=== PATIENT | female | born 1955 | race Caucasian/White ===

== ENCOUNTER 2019-02-12 18:42 | Inpatient (IN) ==
[2019-02-12] MEDS ORDERED: SODIUM CHLORIDE 0.9% 1,000 ML IV STA (19:49)
[2019-02-12] MEDS ORDERED: MORPHINE 4 MG/1 ML VIAL IV STA (19:49)
[2019-02-12] MEDS ORDERED: ONDANSETRON 4 MG/2 ML VIAL IV STA (19:49)
[2019-02-12 20:10] LABS: Basophils # 0.1 10*3/uL (0.0-0.2); Basophils % 0.4 % (0.0-0.8); Eosinophils % 0.1 % (0.00-10.9); Hematocrit 31.3 VOL% (35.7-47.0); Hemoglobin 10.2 GM/DL (12.0-16.0); Immature Granulocytes % 0.7 %; Immature Granulocytes Absolute 0.08 #; Lymphocytes # 2.3 10*3/uL (1.4-4.0); Mean Corpuscular HGB Conc 32.6 GM/DL (32-36); Mean Corpuscular Volume 93.4 FL (87-102); Mean Platelet Volume 10.1 FL (9.6-12.0); Monocytes % 7.2 % (1.7-12.7); Neutrophils % 71.6 % (38.7-73.9); Platelet Count 372 T/CUMM (130-400); Red Blood Count 3.35 MC/CUMM (3.8-5.5); Red Cell Distribution Width 13.2 % (9.3-17.3); White Blood Count 11.5 T/CUMM (4-12)
[2019-02-12 20:17] LABS: INR 0.9; PT Patient Result 9.6 SECS (9.6-12.2)
[2019-02-12 20:20] LABS: Alanine Aminotransferase 30 U/L (13-56); Albumin 2.8 G/DL (3.4-5.0); Alkaline Phosphatase 167 U/L (45-117); Aspartate Amino Transferase 29 U/L (0-37); Bilirubin,Total < 0.39 MG/DL (0.2-1.0); Blood Urea Nitrogen 10 MG/DL (7-18); Estimated Glom Filtration Rate 89 ML/MIN; Glucose 353 MG/DL (74-106); Osmolality,Calculated 272.8 MOS/KG (273-304); Total Protein 7.2 G/DL (6.4-8.3)
[2019-02-12] MEDS ORDERED: ONDANSETRON 4 MG/2 ML VIAL IV PRN (21:08)
[2019-02-12] MEDS ORDERED: DEXTROSE 50% 25 GM/50 ML VIAL IV PRN ×2 (21:13→23:06)
[2019-02-12] MEDS ORDERED: GLUCAGON 1 MG VIAL IM PRN (21:13)
[2019-02-12 21:17] LABS: Apearance,Urine CLEAR (Clear); Bilirubin,Urine Negative (Negative); Blood, Urine Negative (Negative); Glucose,Urine (UA) >=500 mg/dL (Negative); Ketones,Urine Negative (Negative); Mucus,Urine Occasional /LPF (Occasional); Nitrite,Urine Negative (Negative); Protein,Urine Negative; RBC,Urine 1 /HPF (0-4); Urine Color Straw (Yellow); Urine Specific Gravity 1.051 (1.001-1.035); Urine Urobilinogen < 2.0 EU/DL (0.2-1.0); WBC,Urine 1 /HPF (0-6)
[2019-02-12] MEDS ORDERED: LEVOFLOXACIN INJ 750 MG in PREMIX 1 EACH IV STA (21:18)
[2019-02-12] MEDS ORDERED: LEVOFLOXACIN INJ 750 MG in PREMIX 1 EACH IV SCH (21:30)
[2019-02-12] MEDS: INSULIN REGULAR 100 UNIT/ML SUBCUT SCH (21:57)
[2019-02-12] MEDS: metroNIDAZOLE INJ 500 MG in PREMIX 1 EACH IV SCH (23:44)
[2019-02-13] MEDS: ACETAMINOPHEN 325 MG TABLET PO PRN (04:51)
[2019-02-13] MEDS: metroNIDAZOLE INJ 500 MG in PREMIX 1 EACH IV SCH (05:45)
[2019-02-13 07:17] LABS: Basophils # 0.1 10*3/uL (0.0-0.2); Basophils % 0.6 % (0.0-0.8); Eosinophils % 0.1 % (0.00-10.9); Hematocrit 28.1 VOL% (35.7-47.0); Hemoglobin 8.9 GM/DL (12.0-16.0); Immature Granulocytes % 0.7 %; Immature Granulocytes Absolute 0.06 #; Lymphocytes # 1.9 10*3/uL (1.4-4.0); Lymphocytes % 22.2 % (21.3-54.2); Mean Corpuscular HGB Conc 31.7 GM/DL (32-36); Mean Corpuscular Volume 95.6 FL (87-102); Mean Platelet Volume 9.9 FL (9.6-12.0); Monocytes % 7.5 % (1.7-12.7); Neutrophils % 68.9 % (38.7-73.9); Platelet Count 304 T/CUMM (130-400); Red Blood Count 2.94 MC/CUMM (3.8-5.5); Red Cell Distribution Width 13.3 % (9.3-17.3); White Blood Count 8.6 T/CUMM (4-12)
[2019-02-13 07:43] LABS: Albumin 2.2 G/DL (3.4-5.0); Bilirubin,Total 0.4 MG/DL (0.2-1.0); Calcium 8.3 MG/DL (8.5-10.1); Osmolality,Calculated 272.4 MOS/KG (273-304); Total Protein 6.6 G/DL (6.4-8.3)
[2019-02-13] MEDS: INSULIN REGULAR 100 UNIT/ML SUBCUT SCH ×4 (08:14→20:59)
[2019-02-13] MEDS ORDERED: MELOXICAM 7.5 MG TABLET PO SCH (09:00)
[2019-02-13] MEDS: CLINDAMYCIN INJ 900 MG in PREMIX 1 EACH IV SCH ×2 (11:42→18:13)
[2019-02-13] MEDS: amLODIPine 5 MG TABLET PO SCH (14:03)
[2019-02-13] MEDS: ASPIRIN EC 81 MG TABLET PO SCH (14:03)
[2019-02-13] MEDS: PANTOPRAZOLE 40 MG TABLET PO SCH (14:03)
[2019-02-13] MEDS: ATORVASTATIN 20 MG TABLET PO SCH (14:03)
[2019-02-13] MEDS: PARoxetine 20 MG TABLET PO SCH (14:03)
[2019-02-13] MEDS: MORPHINE 4 MG/1 ML VIAL IV PRN (17:06)
[2019-02-13 18:13] LABS: Total Protein,Pleural Fluid 5.2 G/DL
[2019-02-13 20:33] LABS: Lymphocytes,Pleural Fluid 5 %; Neutrophils,Pleural Fluid 95 %
[2019-02-13 20:34] LABS: RBC,Pleural Fluid 9938 T/CUMM
[2019-02-13] MEDS: INSULIN GLARGINE 100 UNIT/ML SUBCUT SCH (21:00)
[2019-02-13] MEDS: LEVOFLOXACIN INJ 750 MG in PREMIX 1 EACH IV SCH (21:00)
[2019-02-14] MEDS: CLINDAMYCIN INJ 900 MG in PREMIX 1 EACH IV SCH ×4 (03:16→18:09)
[2019-02-14 05:59] LABS: Basophils # 0.1 10*3/uL (0.0-0.2); Basophils % 0.6 % (0.0-0.8); Eosinophils % 0.1 % (0.00-10.9); Hematocrit 27.8 VOL% (35.7-47.0); Hemoglobin 8.8 GM/DL (12.0-16.0); Immature Granulocytes % 0.6 %; Immature Granulocytes Absolute 0.05 #; Mean Corpuscular HGB Conc 31.7 GM/DL (32-36); Mean Corpuscular Volume 94.2 FL (87-102); Mean Platelet Volume 10.1 FL (9.6-12.0); Monocytes % 10.2 % (1.7-12.7); Neutrophils % 63.5 % (38.7-73.9); Platelet Count 321 T/CUMM (130-400); Red Blood Count 2.95 MC/CUMM (3.8-5.5); Red Cell Distribution Width 13.4 % (9.3-17.3); White Blood Count 7.9 T/CUMM (4-12)
[2019-02-14 06:40] LABS: Calcium 8.6 MG/DL (8.5-10.1); Osmolality,Calculated 272.8 MOS/KG (273-304); Risk Ratio 2.02; Thyroid Stimulating Hormone 3.46 uIU/ml (0.358-3.74)
[2019-02-14] MEDS: ASPIRIN EC 81 MG TABLET PO SCH (08:22)
[2019-02-14] MEDS: ATORVASTATIN 20 MG TABLET PO SCH (08:22)
[2019-02-14] MEDS: PARoxetine 20 MG TABLET PO SCH (08:23)
[2019-02-14] MEDS: PANTOPRAZOLE 40 MG TABLET PO SCH (08:23)
[2019-02-14] MEDS: amLODIPine 5 MG TABLET PO SCH (08:23)
[2019-02-14] MEDS: MORPHINE 4 MG/1 ML VIAL IV PRN (08:24)
[2019-02-14] MEDS ORDERED: POTASSIUM CHLORIDE 20 MEQ TABLET PO PRN (08:35)
[2019-02-14] MEDS: INSULIN REGULAR 100 UNIT/ML SUBCUT SCH ×4 (09:06→21:35)
[2019-02-14] MEDS: INSULIN GLARGINE 100 UNIT/ML SUBCUT SCH ×2 (09:07→21:35)
[2019-02-14] MEDS ORDERED: MAGNESIUM SULF RIDER 4 GM in PREMIX 1 EACH IV PRN (11:56)
[2019-02-14] MEDS ORDERED: DORNASE ALFA INTRAPLEUR ONE (12:00)
[2019-02-14] MEDS ORDERED: ALTEPLASE INTRAPLEUR ONE (12:00)
[2019-02-14] MEDS: POTASSIUM CHLORIDE 20 MEQ TABLET PO PRN ×2 (12:16→14:52)
[2019-02-14] MEDS: MAGNESIUM SULF RIDER 2 GM in PREMIX 1 EACH IV PRN (12:56)
[2019-02-14] MEDS ORDERED: traZODone 50 MG TABLET PO PRN (13:59)
[2019-02-14] MEDS: LEVOFLOXACIN INJ 750 MG in PREMIX 1 EACH IV SCH (21:36)
[2019-02-15] MEDS: CLINDAMYCIN INJ 900 MG in PREMIX 1 EACH IV SCH ×2 (02:04→11:53)
[2019-02-15 05:37] LABS: Basophils % 0.5 % (0.0-0.8); Eosinophils % 0.3 % (0.00-10.9); Hemoglobin 9.5 GM/DL (12.0-16.0); Immature Granulocytes % 1.2 %; Immature Granulocytes Absolute 0.09 #; Lymphocytes # 1.6 10*3/uL (1.4-4.0); Lymphocytes % 20.9 % (21.3-54.2); Mean Corpuscular HGB Conc 31.7 GM/DL (32-36); Mean Corpuscular Volume 95.5 FL (87-102); Mean Platelet Volume 9.5 FL (9.6-12.0); Neutrophils % 68.1 % (38.7-73.9); Platelet Count 313 T/CUMM (130-400); Red Blood Count 3.14 MC/CUMM (3.8-5.5); Red Cell Distribution Width 13.3 % (9.3-17.3); White Blood Count 7.7 T/CUMM (4-12)
[2019-02-15 05:54] LABS: Calcium 8.6 MG/DL (8.5-10.1); Osmolality,Calculated 260.7 MOS/KG (273-304)
[2019-02-15] MEDS: MAGNESIUM SULF RIDER 2 GM in PREMIX 1 EACH IV PRN (06:06)
[2019-02-15] MEDS: INSULIN REGULAR 100 UNIT/ML SUBCUT SCH ×4 (08:15→21:15)
[2019-02-15] MEDS: amLODIPine 5 MG TABLET PO SCH (08:27)
[2019-02-15] MEDS: PANTOPRAZOLE 40 MG TABLET PO SCH (08:28)
[2019-02-15] MEDS: ATORVASTATIN 20 MG TABLET PO SCH (08:28)
[2019-02-15] MEDS: PARoxetine 20 MG TABLET PO SCH (08:28)
[2019-02-15] MEDS: ASPIRIN EC 81 MG TABLET PO SCH (08:28)
[2019-02-15] MEDS: INSULIN GLARGINE 100 UNIT/ML SUBCUT SCH ×2 (08:37→21:15)
[2019-02-15] MEDS ORDERED: DORNASE ALFA INTRAPLEUR ONE (16:30)
[2019-02-15] MEDS ORDERED: ALTEPLASE INTRAPLEUR ONE (16:30)
[2019-02-15] MEDS: LEVOFLOXACIN 750 MG TABLET PO SCH (21:13)
[2019-02-16 05:29] LABS: Basophils # 0.1 10*3/uL (0.0-0.2); Basophils % 0.8 % (0.0-0.8); Eosinophils % 0.6 % (0.00-10.9); Hematocrit 28.8 VOL% (35.7-47.0); Hemoglobin 8.8 GM/DL (12.0-16.0); Immature Granulocytes % 1.3 %; Immature Granulocytes Absolute 0.08 #; Lymphocytes % 32.1 % (21.3-54.2); Mean Corpuscular HGB Conc 30.6 GM/DL (32-36); Mean Corpuscular Volume 97.6 FL (87-102); Mean Platelet Volume 10.1 FL (9.6-12.0); Monocytes % 8.8 % (1.7-12.7); Neutrophils % 56.4 % (38.7-73.9); Platelet Count 330 T/CUMM (130-400); Red Blood Count 2.95 MC/CUMM (3.8-5.5); Red Cell Distribution Width 13.5 % (9.3-17.3); White Blood Count 6.4 T/CUMM (4-12)
[2019-02-16 06:01] LABS: Calcium 8.8 MG/DL (8.5-10.1); Osmolality,Calculated 267.1 MOS/KG (273-304)
[2019-02-16] MEDS: amLODIPine 5 MG TABLET PO SCH (08:28)
[2019-02-16] MEDS: PARoxetine 20 MG TABLET PO SCH (08:28)
[2019-02-16] MEDS: ATORVASTATIN 20 MG TABLET PO SCH (08:28)
[2019-02-16] MEDS: PANTOPRAZOLE 40 MG TABLET PO SCH (08:28)
[2019-02-16] MEDS: ASPIRIN EC 81 MG TABLET PO SCH (08:28)
[2019-02-16] MEDS: INSULIN REGULAR 100 UNIT/ML SUBCUT SCH ×4 (08:31→22:24)
[2019-02-16] MEDS: INSULIN GLARGINE 100 UNIT/ML SUBCUT SCH ×2 (08:31→22:24)
[2019-02-16] MEDS: POLYETHYLENE GLYCOL POWDER 17 GM PACK PO SCH (14:37)
[2019-02-16] MEDS: LEVOFLOXACIN 750 MG TABLET PO SCH (22:23)
[2019-02-16] MEDS: traZODone 50 MG TABLET PO PRN (22:23)
[2019-02-17 06:00] LABS: Basophils # 0.1 10*3/uL (0.0-0.2); Eosinophils # 0.1 10*3/uL (0.0-0.87); Eosinophils % 1.7 % (0.00-10.9); Hematocrit 29.7 VOL% (35.7-47.0); Hemoglobin 9.1 GM/DL (12.0-16.0); Immature Granulocytes % 1.2 %; Immature Granulocytes Absolute 0.06 #; Lymphocytes # 1.9 10*3/uL (1.4-4.0); Lymphocytes % 37.3 % (21.3-54.2); Mean Corpuscular HGB Conc 30.6 GM/DL (32-36); Mean Corpuscular Volume 97.4 FL (87-102); Mean Platelet Volume 9.6 FL (9.6-12.0); Monocytes % 11.1 % (1.7-12.7); Neutrophils % 47.7 % (38.7-73.9); Platelet Count 310 T/CUMM (130-400); Red Blood Count 3.05 MC/CUMM (3.8-5.5); Red Cell Distribution Width 13.3 % (9.3-17.3); White Blood Count 5.2 T/CUMM (4-12)
[2019-02-17 06:32] LABS: Calcium 8.9 MG/DL (8.5-10.1); Osmolality,Calculated 269.8 MOS/KG (273-304)
[2019-02-17] MEDS: INSULIN REGULAR 100 UNIT/ML SUBCUT SCH ×4 (08:01→21:02)
[2019-02-17] MEDS: INSULIN GLARGINE 100 UNIT/ML SUBCUT SCH ×2 (09:11→21:02)
[2019-02-17] MEDS: POLYETHYLENE GLYCOL POWDER 17 GM PACK PO SCH (09:12)
[2019-02-17] MEDS: ASPIRIN EC 81 MG TABLET PO SCH (09:13)
[2019-02-17] MEDS: PANTOPRAZOLE 40 MG TABLET PO SCH (09:13)
[2019-02-17] MEDS: PARoxetine 20 MG TABLET PO SCH (09:13)
[2019-02-17] MEDS: amLODIPine 5 MG TABLET PO SCH (09:33)
[2019-02-17] MEDS: ATORVASTATIN 20 MG TABLET PO SCH (09:38)
[2019-02-17] MEDS: ALBUTEROL/IPRATROPIUM 3 ML NEB RESP TX SCH (18:44)
[2019-02-17] MEDS: LEVOFLOXACIN 750 MG TABLET PO SCH (21:02)
[2019-02-17] MEDS: traZODone 50 MG TABLET PO PRN (22:31)
[2019-02-18] MEDS: ALBUTEROL/IPRATROPIUM 3 ML NEB RESP TX SCH ×4 (00:33→20:45)
[2019-02-18 05:14] LABS: Basophils % 0.5 % (0.0-0.8); Eosinophils # 0.1 10*3/uL (0.0-0.87); Eosinophils % 1.1 % (0.00-10.9); Hematocrit 29.2 VOL% (35.7-47.0); Hemoglobin 9.1 GM/DL (12.0-16.0); Immature Granulocytes % 1.3 %; Immature Granulocytes Absolute 0.07 #; Lymphocytes # 2.3 10*3/uL (1.4-4.0); Lymphocytes % 41.5 % (21.3-54.2); Mean Corpuscular HGB Conc 31.2 GM/DL (32-36); Mean Corpuscular Volume 95.7 FL (87-102); Mean Platelet Volume 9.9 FL (9.6-12.0); Monocytes % 8.6 % (1.7-12.7); Platelet Count 330 T/CUMM (130-400); Red Blood Count 3.05 MC/CUMM (3.8-5.5); Red Cell Distribution Width 13.3 % (9.3-17.3); White Blood Count 5.5 T/CUMM (4-12)
[2019-02-18 05:41] LABS: Calcium 8.9 MG/DL (8.5-10.1); Osmolality,Calculated 275.7 MOS/KG (273-304)
[2019-02-18] MEDS: INSULIN REGULAR 100 UNIT/ML SUBCUT SCH ×4 (07:46→20:59)
[2019-02-18] MEDS: PANTOPRAZOLE 40 MG TABLET PO SCH (08:27)
[2019-02-18] MEDS: INSULIN GLARGINE 100 UNIT/ML SUBCUT SCH ×2 (08:28→21:00)
[2019-02-18] MEDS: amLODIPine 5 MG TABLET PO SCH (08:28)
[2019-02-18] MEDS: ASPIRIN EC 81 MG TABLET PO SCH (08:28)
[2019-02-18] MEDS: PARoxetine 20 MG TABLET PO SCH (08:28)
[2019-02-18] MEDS: POLYETHYLENE GLYCOL POWDER 17 GM PACK PO SCH (08:28)
[2019-02-18] MEDS: ATORVASTATIN 20 MG TABLET PO SCH (08:28)
[2019-02-18] MEDS ORDERED: ALTEPLASE 5 MG in SYRINGE 1 EACH INTRAPLEUR ONE (08:30)
[2019-02-18] MEDS: MAGNESIUM HYDROXIDE SUSP 30 ML UDCUP PO PRN ×2 (08:32→20:58)
[2019-02-18] MEDS: ENOXAPARIN 40 MG/0.4 ML SYRINGE SUBCUT SCH (14:12)
[2019-02-18] MEDS: LEVOFLOXACIN 750 MG TABLET PO SCH (21:01)
[2019-02-18] MEDS: traZODone 50 MG TABLET PO PRN (22:40)
[2019-02-19] MEDS: ALBUTEROL/IPRATROPIUM 3 ML NEB RESP TX SCH ×4 (00:48→20:37)
[2019-02-19 04:52] LABS: Basophils # 0.1 10*3/uL (0.0-0.2); Basophils % 0.9 % (0.0-0.8); Eosinophils # 0.1 10*3/uL (0.0-0.87); Eosinophils % 1.9 % (0.00-10.9); Hematocrit 29.6 VOL% (35.7-47.0); Hemoglobin 9.3 GM/DL (12.0-16.0); Immature Granulocytes Absolute 0.06 #; Lymphocytes # 2.4 10*3/uL (1.4-4.0); Lymphocytes % 41.6 % (21.3-54.2); Mean Corpuscular HGB Conc 31.4 GM/DL (32-36); Mean Corpuscular Volume 95.5 FL (87-102); Mean Platelet Volume 9.6 FL (9.6-12.0); Monocytes % 9.6 % (1.7-12.7); Platelet Count 340 T/CUMM (130-400); Red Cell Distribution Width 13.6 % (9.3-17.3); White Blood Count 5.7 T/CUMM (4-12)
[2019-02-19 05:19] LABS: Calcium 8.9 MG/DL (8.5-10.1); Osmolality,Calculated 273.7 MOS/KG (273-304)
[2019-02-19] MEDS: INSULIN REGULAR 100 UNIT/ML SUBCUT SCH ×4 (07:59→21:55)
[2019-02-19] MEDS: ACETAMINOPHEN 325 MG TABLET PO PRN (08:09)
[2019-02-19] MEDS: MAGNESIUM HYDROXIDE SUSP 30 ML UDCUP PO PRN ×3 (08:10→21:25)
[2019-02-19] MEDS ORDERED: POLYVINYL ALCOHOL 1.4% OPH SOLN 15 ML BOTTLE BOTH EYES PRN (08:12)
[2019-02-19] MEDS: POLYETHYLENE GLYCOL POWDER 17 GM PACK PO SCH (09:12)
[2019-02-19] MEDS: INSULIN GLARGINE 100 UNIT/ML SUBCUT SCH ×2 (09:13→21:55)
[2019-02-19] MEDS: PARoxetine 20 MG TABLET PO SCH (09:14)
[2019-02-19] MEDS: ASPIRIN EC 81 MG TABLET PO SCH (09:14)
[2019-02-19] MEDS: PANTOPRAZOLE 40 MG TABLET PO SCH (09:14)
[2019-02-19] MEDS: amLODIPine 5 MG TABLET PO SCH (09:14)
[2019-02-19] MEDS: ATORVASTATIN 20 MG TABLET PO SCH (09:14)
[2019-02-19] MEDS: ENOXAPARIN 40 MG/0.4 ML SYRINGE SUBCUT SCH (14:20)
[2019-02-19] MEDS: LEVOFLOXACIN 750 MG TABLET PO SCH (21:24)
[2019-02-19] MEDS: traZODone 50 MG TABLET PO PRN (21:55)
[2019-02-20] MEDS: ALBUTEROL/IPRATROPIUM 3 ML NEB RESP TX SCH ×2 (00:31→07:57)
[2019-02-20 07:37] VITALS: BP 133/77
[2019-02-20] MEDS: ACETAMINOPHEN 325 MG TABLET PO PRN (08:04)
[2019-02-20] MEDS: ATORVASTATIN 20 MG TABLET PO SCH (09:17)
[2019-02-20] MEDS: amLODIPine 5 MG TABLET PO SCH (09:18)
[2019-02-20] MEDS: POLYETHYLENE GLYCOL POWDER 17 GM PACK PO SCH (09:18)
[2019-02-20] MEDS: PARoxetine 20 MG TABLET PO SCH (09:18)
[2019-02-20] MEDS: PANTOPRAZOLE 40 MG TABLET PO SCH (09:18)
[2019-02-20] MEDS: INSULIN GLARGINE 100 UNIT/ML SUBCUT SCH (09:24)
[2019-02-20] MEDS: INSULIN REGULAR 100 UNIT/ML SUBCUT SCH (09:24)
[2019-02-20] MEDS: ASPIRIN EC 81 MG TABLET PO SCH (09:25)
== END 2019-02-20 13:00 | disposition home or self-care (01) | DRG 137 ==
LOC: N.ED 18:42 → N.EDINP 21:08 → SUATTDRO 21:08 → N.5E 21:50
PROVIDERS: ADMIT Internal Medicine; ATTEND Internal Medicine Cardiovascular Disease

== ENCOUNTER 2019-11-23 06:26 | Inpatient (IN) ==
[2019-11-18 15:06] LABS: Basophils # 0.1 10*3/uL (0.0-0.2); Basophils % 0.8 % (0.0-0.8); Eosinophils # 0.1 10*3/uL (0.0-0.87); Eosinophils % 0.8 % (0.00-10.9); Hematocrit 41.6 VOL% (35.7-47.0); Hemoglobin 13.8 GM/DL (12.0-16.0); Immature Granulocytes % 0.3 %; Immature Granulocytes Absolute 0.02 #; Lymphocytes # 2.9 10*3/uL (1.4-4.0); Lymphocytes % 40.5 % (21.3-54.2); Mean Corpuscular HGB Conc 33.2 GM/DL (32-36); Mean Corpuscular Volume 93.9 FL (87-102); Mean Platelet Volume 10.2 FL (9.6-12.0); Monocytes % 6.1 % (1.7-12.7); Neutrophils % 51.5 % (38.7-73.9); Platelet Count 190 T/CUMM (130-400); Red Blood Count 4.43 MC/CUMM (3.8-5.5); Red Cell Distribution Width 12.4 % (9.3-17.3); White Blood Count 7.1 T/CUMM (4-12)
[2019-11-18 15:16] LABS: PT Patient Result 10.3 SECS (9.8-11.9)
[2019-11-18 15:33] LABS: Albumin 4.1 G/DL (3.4-5.0); Bilirubin,Total 1.2 MG/DL (0.2-1.0); Osmolality,Calculated 281.3 MOS/KG (273-304); Total Protein 7.5 G/DL (6.4-8.3)
[~2019-11-23 06:26] MED LIST: DEXMEDETOMIDINE 200 MCG/2 ML VIAL ONE; HEPARIN/NACL 0.9% 2 UNITS/ML 500 ML IV ONE; MORPHINE 10 MG/10 ML VIAL ONE; NITROGLYCERIN DRIP 50 MG/250 ML BOTTLE IV ONE; PHENYLEPHRINE DRIP 20 MG/250 ML PREMIX IV ONE
[2019-11-23] MEDS ORDERED: VANCOMYCIN INJ 1,000 MG in SODIUM CHLORIDE 0.9% 250 ML IV ONE (06:30)
[2019-11-23] MEDS ORDERED: SODIUM CHLORIDE 0.9% 250 ML IV ONE (06:32)
[2019-11-23] MEDS ORDERED: HEPARIN 5,000 UNIT/1 ML VIAL ONE ×2 (06:32→06:44)
[2019-11-23] MEDS ORDERED: LIDOCAINE 1% 20 ML VIAL ONE (06:45)
[2019-11-23] MEDS ORDERED: VANCOMYCIN 1,000 MG VIAL ONE (06:58)
[2019-11-23] MEDS ORDERED: LACTATED RINGERS 1,000 ML IV SCH (07:00)
[2019-11-23] MEDS ORDERED: DEXMEDETOMIDINE 200 MCG in SODIUM CHLORIDE 0.9% 48 ML IV PRN (10:52)
[2019-11-23] MEDS ORDERED: tiZANidine 4 MG TABLET PO PRN (11:13)
[2019-11-23] MEDS ORDERED: ALBUMIN 5% 12.5 GM/250 ML VIAL IV ONE ×2 (11:23→15:37)
[2019-11-23] MEDS ORDERED: LIDOCAINE 2% 5 ML VIAL ONE (12:04)
[2019-11-23] MEDS ORDERED: fentaNYL 100 MCG/2 ML VIAL ONE (12:05)
[2019-11-23] MEDS ORDERED: ROCURONIUM 100 MG/10 ML VIAL IV ONE (12:05)
[2019-11-23] MEDS ORDERED: MIDAZOLAM 2 MG/2 ML VIAL ONE (12:05)
[2019-11-23] MEDS ORDERED: DESFLURANE 1 UNIT/15 MINUTE INH ONE (12:05)
[2019-11-23] MEDS ORDERED: HEPARIN 10,000 UNIT/10 ML VIAL ONE (12:05)
[2019-11-23] MEDS ORDERED: SODIUM CHLORIDE 0.9% 1,000 ML IV ONE ×2 (12:05→16:00)
[2019-11-23] MEDS ORDERED: LACTATED RINGERS 2,000 ML IV ONE (12:05)
[2019-11-23] MEDS ORDERED: ETOMIDATE 40 MG/20 ML VIAL IV ONE (12:05)
[2019-11-23] MEDS ORDERED: ePHEDrine 50 MG/ML VIAL ONE (12:05)
[2019-11-23] MEDS ORDERED: PROTAMINE SULFATE 50 MG/5 ML VIAL IV ONE (12:06)
[2019-11-23 12:11] LABS: Basophils # 0.1 10*3/uL (0.0-0.2); Basophils % 0.7 % (0.0-0.8); Eosinophils # 0.1 10*3/uL (0.0-0.87); Eosinophils % 0.5 % (0.00-10.9); Hematocrit 32.3 VOL% (35.7-47.0); Immature Granulocytes % 0.5 %; Immature Granulocytes Absolute 0.05 #; Lymphocytes # 2.9 10*3/uL (1.4-4.0); Mean Corpuscular Volume 99.7 FL (87-102); Mean Platelet Volume 9.8 FL (9.6-12.0); Monocytes % 5.3 % (1.7-12.7); Platelet Count 122 T/CUMM (130-400); Red Blood Count 3.24 MC/CUMM (3.8-5.5); Red Cell Distribution Width 12.5 % (9.3-17.3); White Blood Count 10.7 T/CUMM (4-12)
[2019-11-23] MEDS ORDERED: PHENYLEPHRINE DRIP 40 MG/250 ML PREMIX IV ONE (12:15)
[2019-11-23] MEDS: ROPIVACAINE 0.2% 100 ML EPIDURAL SCH (12:15)
[2019-11-23] MEDS: PHENYLEPHRINE DRIP 40 MG/250 ML PREMIX IV PRN ×2 (12:20→19:38)
[2019-11-23 12:32] LABS: Calcium 7.5 MG/DL (8.5-10.1); Osmolality,Calculated 294.6 MOS/KG (273-304)
[2019-11-23 12:47] LABS: Platelet Estimate Adequate
[2019-11-23] MEDS: LACTATED RINGERS 1,000 ML IV SCH ×2 (13:00→22:11)
[2019-11-23] MEDS ORDERED: GLUCAGON 1 MG VIAL IM PRN (13:25)
[2019-11-23] MEDS ORDERED: DEXTROSE 50% 25 GM/50 ML VIAL IV PRN (13:25)
[2019-11-23] MEDS: POTASSIUM CHLORIDE RIDER 10 MEQ in PREMIX 1 EACH IV SCH ×2 (14:30→15:35)
[2019-11-23] MEDS ORDERED: POTASSIUM CHLORIDE RIDER 200 ML IV ONE (14:31)
[2019-11-23 14:33] LABS: ABG HCO3 17.9 MMOL/L (20-26); ABG Oxygen Saturation 96.4 % (95-100); ABG PCO2 52.3 MM HG (35-48); ABG TCO2 18.9 MMOL/L (23-27)
[2019-11-23] MEDS ORDERED: MAGNESIUM SULF RIDER 4 GM in PREMIX 1 EACH IV ONE (16:00)
[2019-11-23] MEDS ORDERED: ALBUMIN 5% 25 GM in PREMIX 1 EACH IV ONE (16:09)
[2019-11-23] MEDS ORDERED: ALUMINUM/MAGNES/SIMETH MAX STR 30 ML UDCUP NG SCH (16:30)
[2019-11-23] MEDS: INSULIN LISPRO 100 UNIT/ML SUBCUT SCH ×2 (17:30→20:10)
[2019-11-23 18:19] LABS: Basophils % 0.3 % (0.0-0.8); Eosinophils % 0.1 % (0.00-10.9); Hematocrit 28.2 VOL% (35.7-47.0); Immature Granulocytes % 0.6 %; Immature Granulocytes Absolute 0.07 #; Lymphocytes # 2.6 10*3/uL (1.4-4.0); Lymphocytes % 22.7 % (21.3-54.2); Mean Corpuscular HGB Conc 31.9 GM/DL (32-36); Mean Corpuscular Volume 98.9 FL (87-102); Mean Platelet Volume 9.8 FL (9.6-12.0); Monocytes % 7.8 % (1.7-12.7); Neutrophils % 68.5 % (38.7-73.9); Platelet Count 123 T/CUMM (130-400); Red Blood Count 2.85 MC/CUMM (3.8-5.5); Red Cell Distribution Width 12.8 % (9.3-17.3); White Blood Count 11.5 T/CUMM (4-12)
[2019-11-23] MEDS: ALUMINUM/MAGNES/SIMETH MAX STR 30 ML UDCUP NG SCH ×2 (18:45→23:10)
[2019-11-23] MEDS: ALBUTEROL/IPRATROPIUM 3 ML NEB RESP TX SCH (19:30)
[2019-11-23 19:54] LABS: Apearance,Urine Slightly Hazy (Clear); Bacteria,Urine Occasional /HPF (Few); Bilirubin,Urine Negative (Negative); Blood, Urine Small mg/dL (Negative); Glucose,Urine (UA) Negative (Negative); Hyaline Casts,Urine 57 /LPF (0-3); Ketones,Urine Negative (Negative); Mucus,Urine Few /LPF (Occasional); Nitrite,Urine Negative (Negative); Protein,Urine Negative; RBC,Urine 12 /HPF (0-4); Squamous Epithelial Cell,Urine Occasional /HPF (0-10); Urine Color Yellow (Yellow); Urine Specific Gravity 1.011 (1.001-1.035); Urine Urobilinogen < 2.0 EU/DL (0.2-1.0); WBC,Urine 13 /HPF (0-6)
[2019-11-23] MEDS: ATORVASTATIN 20 MG TABLET PO SCH (20:10)
[2019-11-24] MEDS: PHENYLEPHRINE DRIP 40 MG/250 ML PREMIX IV PRN ×2 (01:24→08:03)
[2019-11-24] MEDS: ALBUTEROL/IPRATROPIUM 3 ML NEB RESP TX SCH ×4 (01:41→20:17)
[2019-11-24 04:14] LABS: ABG Base Excess -5.3 MMOL/L (-2.5-2.5); ABG Oxygen Saturation 97.5 % (95-100); ABG PCO2 35.9 MM HG (35-48); ABG PH 7.348 (7.35-7.45); ABG PO2 97.6 MM HG (80-95); ABG TCO2 18.2 MMOL/L (23-27)
[2019-11-24 04:21] LABS: Basophils # 0.1 10*3/uL (0.0-0.2); Basophils % 0.5 % (0.0-0.8); Eosinophils % 0.2 % (0.00-10.9); Hematocrit 29.1 VOL% (35.7-47.0); Hemoglobin 9.4 GM/DL (12.0-16.0); Immature Granulocytes % 0.4 %; Immature Granulocytes Absolute 0.05 #; Lymphocytes # 3.4 10*3/uL (1.4-4.0); Lymphocytes % 26.6 % (21.3-54.2); Mean Corpuscular HGB Conc 32.3 GM/DL (32-36); Mean Platelet Volume 10.3 FL (9.6-12.0); Monocytes % 8.5 % (1.7-12.7); Neutrophils % 63.8 % (38.7-73.9); Platelet Count 134 T/CUMM (130-400); White Blood Count 12.6 T/CUMM (4-12)
[2019-11-24] MEDS: LACTATED RINGERS 1,000 ML IV SCH ×3 (04:32→20:06)
[2019-11-24 04:38] LABS: Calcium 7.8 MG/DL (8.5-10.1)
[2019-11-24] MEDS: ALUMINUM/MAGNES/SIMETH MAX STR 30 ML UDCUP NG SCH (05:18)
[2019-11-24] MEDS: INSULIN LISPRO 100 UNIT/ML SUBCUT SCH ×4 (07:35→20:10)
[2019-11-24] MEDS: ROPIVACAINE 0.2% 100 ML EPIDURAL SCH (08:00)
[2019-11-24] MEDS: MELOXICAM 7.5 MG TABLET PO SCH (09:56)
[2019-11-24] MEDS: ASPIRIN EC 81 MG TABLET PO SCH (09:56)
[2019-11-24] MEDS: CETIRIZINE 10 MG TABLET PO SCH (09:56)
[2019-11-24] MEDS: PARoxetine 20 MG TABLET PO SCH (09:56)
[2019-11-24] MEDS ORDERED: HYDROmorphone 2 MG/1 ML VIAL IV PRN (11:39)
[2019-11-24] MEDS: METOCLOPRAMIDE 10 MG/2 ML VIAL IV SCH ×2 (11:54→17:54)
[2019-11-24] MEDS: KETOROLAC 30 MG/1 ML VIAL IV SCH ×2 (11:57→18:02)
[2019-11-24] MEDS: ACETAMINOPHEN 500 MG TABLET PO SCH ×2 (12:01→17:57)
[2019-11-24] MEDS ORDERED: fentaNYL 2 MCG/ROPIV 0.2% EPID 100 ML EPIDURAL ONE (12:20)
[2019-11-24] MEDS: fentaNYL 2 MCG/ROPIV 0.2% EPID 100 ML EPIDURAL SCH (12:38)
[2019-11-24] MEDS: chlordiazePOXIDE 10 MG CAPSULE PO PRN (17:57)
[2019-11-24] MEDS: ATORVASTATIN 20 MG TABLET PO SCH (20:33)
[2019-11-25] MEDS: KETOROLAC 30 MG/1 ML VIAL IV SCH ×2 (00:28→06:10)
[2019-11-25] MEDS: ACETAMINOPHEN 500 MG TABLET PO SCH ×2 (00:28→06:07)
[2019-11-25] MEDS: METOCLOPRAMIDE 10 MG/2 ML VIAL IV SCH ×2 (00:31→06:13)
[2019-11-25] MEDS: ALBUTEROL/IPRATROPIUM 3 ML NEB RESP TX SCH ×2 (01:10→07:51)
[2019-11-25 03:51] LABS: Basophils % 0.4 % (0.0-0.8); Eosinophils % 0.3 % (0.00-10.9); Hematocrit 25.4 VOL% (35.7-47.0); Immature Granulocytes % 0.6 %; Immature Granulocytes Absolute 0.05 #; Lymphocytes # 1.1 10*3/uL (1.4-4.0); Lymphocytes % 13.6 % (21.3-54.2); Mean Corpuscular HGB Conc 31.5 GM/DL (32-36); Mean Corpuscular Volume 98.8 FL (87-102); Mean Platelet Volume 10.7 FL (9.6-12.0); Monocytes % 5.8 % (1.7-12.7); Neutrophils % 79.3 % (38.7-73.9); Platelet Count 83 T/CUMM (130-400); Red Blood Count 2.57 MC/CUMM (3.8-5.5); Red Cell Distribution Width 12.8 % (9.3-17.3); White Blood Count 7.8 T/CUMM (4-12)
[2019-11-25 04:27] LABS: Eosinophils 2 % (0-10); Lymphocytes 8 % (20-55); Platelet Estimate Decreased; Segmented Neutrophils 87 % (50-85); Total Cells Counted 100
[2019-11-25 04:28] LABS: Hypochromasia 1+; Microcytosis 1+
[2019-11-25] MEDS: LACTATED RINGERS 1,000 ML IV SCH (06:07)
[2019-11-25] MEDS: fentaNYL 2 MCG/ROPIV 0.2% EPID 100 ML EPIDURAL SCH (06:38)
[2019-11-25] MEDS ORDERED: FUROSEMIDE 40 MG/4 ML VIAL IV ONE (07:46)
[2019-11-25] MEDS ORDERED: GLUCAGON 1 MG VIAL IM PRN (08:24)
[2019-11-25] MEDS ORDERED: DEXTROSE 50% 25 GM/50 ML VIAL IV PRN (08:24)
[2019-11-25] MEDS: MELOXICAM 7.5 MG TABLET PO SCH (09:08)
[2019-11-25] MEDS: CETIRIZINE 10 MG TABLET PO SCH (09:08)
[2019-11-25] MEDS: ASPIRIN EC 81 MG TABLET PO SCH (09:08)
[2019-11-25] MEDS: chlordiazePOXIDE 10 MG CAPSULE PO PRN (09:08)
[2019-11-25] MEDS: INSULIN LISPRO 100 UNIT/ML SUBCUT SCH ×4 (09:08→21:52)
[2019-11-25] MEDS: PARoxetine 20 MG TABLET PO SCH (09:08)
[2019-11-25 10:08] LABS: Calcium 8.5 MG/DL (8.5-10.1); Osmolality,Calculated 287.1 MOS/KG (273-304)
[2019-11-25] MEDS ORDERED: HYDROmorphone 2 MG/1 ML VIAL IV PRN ×2 (11:26→11:38)
[2019-11-25] MEDS ORDERED: KETOROLAC 30 MG/1 ML VIAL IV ONE (11:26)
[2019-11-25] MEDS ORDERED: HYDROmorphone 2 MG/1 ML VIAL IV SCH (11:30)
[2019-11-25] MEDS: KETOROLAC 10 MG TABLET PO SCH ×2 (11:46→18:22)
[2019-11-25] MEDS: PANTOPRAZOLE 40 MG VIAL IV SCH (12:24)
[2019-11-25] MEDS ORDERED: LEVALBUTEROL 1.25 MG/3 ML NEB RESP TX ONE (13:52)
[2019-11-25] MEDS: LEVALBUTEROL 1.25 MG/3 ML NEB RESP TX SCH (13:54)
[2019-11-25] MEDS: ATORVASTATIN 20 MG TABLET PO SCH (20:58)
[2019-11-25] MEDS: INSULIN GLARGINE 100 UNIT/ML SUBCUT SCH (21:53)
[2019-11-26] MEDS: LEVALBUTEROL 1.25 MG/3 ML NEB RESP TX SCH ×4 (00:18→23:24)
[2019-11-26] MEDS: KETOROLAC 10 MG TABLET PO SCH ×4 (01:07→17:30)
[2019-11-26 06:19] LABS: Basophils % 0.6 % (0.0-0.8); Eosinophils # 0.2 10*3/uL (0.0-0.87); Eosinophils % 2.3 % (0.00-10.9); Hematocrit 25.5 VOL% (35.7-47.0); Hemoglobin 8.4 GM/DL (12.0-16.0); Immature Granulocytes % 0.4 %; Immature Granulocytes Absolute 0.03 #; Lymphocytes # 1.6 10*3/uL (1.4-4.0); Lymphocytes % 22.9 % (21.3-54.2); Mean Corpuscular HGB Conc 32.9 GM/DL (32-36); Mean Corpuscular Volume 95.1 FL (87-102); Mean Platelet Volume 10.6 FL (9.6-12.0); Neutrophils % 66.8 % (38.7-73.9); Platelet Count 101 T/CUMM (130-400); Red Blood Count 2.68 MC/CUMM (3.8-5.5); Red Cell Distribution Width 12.8 % (9.3-17.3); White Blood Count 6.9 T/CUMM (4-12)
[2019-11-26 06:26] LABS: Calcium 8.2 MG/DL (8.5-10.1); Osmolality,Calculated 283.3 MOS/KG (273-304)
[2019-11-26] MEDS: INSULIN LISPRO 100 UNIT/ML SUBCUT SCH ×4 (07:18→21:54)
[2019-11-26] MEDS: MELOXICAM 7.5 MG TABLET PO SCH (08:34)
[2019-11-26] MEDS: CETIRIZINE 10 MG TABLET PO SCH (08:34)
[2019-11-26] MEDS: amLODIPine 5 MG TABLET PO SCH (08:34)
[2019-11-26] MEDS: PARoxetine 20 MG TABLET PO SCH (08:34)
[2019-11-26] MEDS: lisinopriL 10 MG TABLET PO SCH (08:34)
[2019-11-26] MEDS: ASPIRIN EC 81 MG TABLET PO SCH (08:34)
[2019-11-26] MEDS: PANTOPRAZOLE 40 MG VIAL IV SCH ×2 (08:36→08:54)
[2019-11-26] MEDS ORDERED: POTASSIUM CHLORIDE 20 MEQ TABLET PO ONE (10:12)
[2019-11-26] MEDS: ATORVASTATIN 20 MG TABLET PO SCH (21:48)
[2019-11-26] MEDS: INSULIN GLARGINE 100 UNIT/ML SUBCUT SCH (21:50)
[2019-11-27] MEDS: KETOROLAC 10 MG TABLET PO SCH ×2 (02:05→06:18)
[2019-11-27] MEDS: LEVALBUTEROL 1.25 MG/3 ML NEB RESP TX SCH (07:33)
[2019-11-27 07:45] VITALS: BP 115/59
[2019-11-27] MEDS: INSULIN LISPRO 100 UNIT/ML SUBCUT SCH (07:53)
[2019-11-27] MEDS ORDERED: POTASSIUM CHLORIDE 20 MEQ TABLET PO SCH (09:00)
[2019-11-27] MEDS ORDERED: PANTOPRAZOLE 40 MG TABLET PO SCH (09:00)
[2019-11-27] MEDS: CETIRIZINE 10 MG TABLET PO SCH (09:19)
[2019-11-27] MEDS: lisinopriL 10 MG TABLET PO SCH (09:19)
[2019-11-27] MEDS: ASPIRIN EC 81 MG TABLET PO SCH (09:19)
[2019-11-27] MEDS: PARoxetine 20 MG TABLET PO SCH (09:19)
[2019-11-27] MEDS: MELOXICAM 7.5 MG TABLET PO SCH (09:20)
[2019-11-27] MEDS: amLODIPine 5 MG TABLET PO SCH (09:20)
== END 2019-11-27 12:20 | disposition home or self-care (01) | DRG 169 ==
LOC: N.SDSINP 06:26 → N.ICU 11:50 → N.4E 11-25 14:29
PROVIDERS: ADMIT Surgery; ATTEND Surgery

== ENCOUNTER 2021-02-05 12:53 | Inpatient (IN) ==
[2021-02-05] MEDS ORDERED: SODIUM CHLORIDE 0.9% 1,000 ML IV STA ×2 (13:39→15:16)
[2021-02-05 14:26] LABS: Basophils # 0.1 10*3/uL (0.0-0.2); Basophils % 0.8 % (0.0-0.8); Eosinophils % 0.1 % (0.00-10.9); Hematocrit 35.6 VOL% (35.7-47.0); Hemoglobin 11.8 GM/DL (12.0-16.0); Immature Granulocytes % 5.3 %; Immature Granulocytes Absolute 0.38 #; Lymphocytes # 1.3 10*3/uL (1.4-4.0); Lymphocytes % 17.4 % (21.3-54.2); Mean Corpuscular HGB Conc 33.1 GM/DL (32-36); Mean Corpuscular Volume 92.5 FL (87-102); Mean Platelet Volume 11.2 FL (9.6-12.0); Monocytes % 10.1 % (1.7-12.7); NRBC # 0.03 10*3/uL; Neutrophils % 66.3 % (38.7-73.9); Platelet Count 240 T/CUMM (130-400); Red Blood Count 3.85 MC/CUMM (3.8-5.5); Red Cell Distribution Width 12.8 % (9.3-17.3); White Blood Count 7.2 T/CUMM (4-12)
[2021-02-05 14:43] LABS: Albumin 3.3 G/DL (3.4-5.0); Bilirubin,Total 0.6 MG/DL (0.20-1.00); Calcium 7.7 MG/DL (8.5-10.1); Osmolality,Calculated 292.9 MOS/KG (273-304); Potassium 4.2 MMOL/L (3.5-5.1); Total Protein 8.1 G/DL (6.4-8.2)
[2021-02-05 14:52] LABS: Band Neutrophils 16 % (0-10); Lymphocytes 24 % (20-55); Metamyelocytes 8 %; Myelocytes 2 %; Nucleated Red Blood Cells 1 (0-5); Segmented Neutrophils 35 % (50-85); Total Cells Counted 100
[2021-02-05 14:53] LABS: Atypical Lymphocytes Few
[2021-02-05 14:54] LABS: Platelet Estimate Normal; Polychromasia 1+
[2021-02-05] MEDS ORDERED: LEVOFLOXACIN INJ 750 MG/150 ML PREMIX IV STA (16:38)
[2021-02-05] MEDS ORDERED: ACETAMINOPHEN 325 MG TABLET ONE (16:51)
[2021-02-05] MEDS ORDERED: ACETAMINOPHEN 325 MG TABLET PO ONE (16:51)
[2021-02-05] MEDS ORDERED: SODIUM CHLORIDE 0.9% 1,000 ML IV ONE (16:55)
[2021-02-05] MEDS ORDERED: ACETAMINOPHEN 650 MG SUPP RECTAL STA (16:56)
[2021-02-05] MEDS ORDERED: SODIUM BICARB INJ 50 MEQ in SODIUM CHLORIDE 0.45% 1,000 ML IV SCH (17:00)
[2021-02-05] MEDS ORDERED: MORPHINE 2 MG/1 ML SYRINGE ONE (17:32)
[2021-02-05] MEDS: metroNIDAZOLE INJ 500 MG/100 ML PREMIX IV SCH (17:47)
[2021-02-05] MEDS ORDERED: MORPHINE 2 MG/1 ML SYRINGE IV STA (17:49)
[2021-02-05] MEDS ORDERED: SODIUM BICARBONATE 50 MEQ/50 ML VIAL IV ONE (17:53)
[2021-02-05 18:07] LABS: Calcium 6.3 MG/DL (8.5-10.1); Osmolality,Calculated 297.4 MOS/KG (273-304); Potassium 4.6 MMOL/L (3.5-5.1)
[2021-02-05] MEDS ORDERED: ALBUTEROL 2.5 MG/3 ML NEB RESP TX PRN (18:10)
[2021-02-05] MEDS ORDERED: ONDANSETRON 4 MG/2 ML VIAL IV PRN (18:10)
[2021-02-05] MEDS ORDERED: LACTATED RINGERS 2,000 ML IV ONE (18:16)
[2021-02-05] MEDS: SODIUM BICARB INJ 100 MEQ in SODIUM CHLORIDE 0.45% 1,000 ML IV SCH (19:26)
[2021-02-05] MEDS ORDERED: SODIUM CHLORIDE 0.45% 1,000 ML IV SCH (20:00)
[2021-02-05] MEDS ORDERED: NOREPINEPHRINE 4 MG/4 ML VIAL IV ONE (20:30)
[2021-02-05] MEDS: NOREPINEPHRINE 8 MG in SODIUM CHLORIDE 0.9% 242 ML IV PRN (21:00)
[2021-02-05] MEDS ORDERED: PANTOPRAZOLE 40 MG VIAL IV SCH (21:00)
[2021-02-05 21:15] VITALS: BP 113/78
[2021-02-05] MEDS: HEPARIN 5,000 UNIT/1 ML VIAL SUBCUT SCH (21:17)
[2021-02-05] MEDS ORDERED: ALBUTEROL/IPRATROPIUM 3 ML NEB RESP TX PRN (21:24)
[2021-02-05 22:15] LABS: Calcium 6.4 MG/DL (8.5-10.1); Osmolality,Calculated 300.1 MOS/KG (273-304); Potassium 4.2 MMOL/L (3.5-5.1)
[2021-02-05] MEDS ORDERED: HYDROmorphone 2 MG/1 ML VIAL IV PRN (23:58)
[2021-02-06 01:05] LABS: Osmolality,Calculated 304.8 MOS/KG (273-304); Potassium 3.5 MMOL/L (3.5-5.1)
[2021-02-06 01:07] LABS: Calcium 5.4 MG/DL (8.5-10.1)
[2021-02-06] MEDS ORDERED: MAGNESIUM SULF RIDER 4 GM/100 ML PREMIX IV PRN (01:11)
[2021-02-06] MEDS ORDERED: MAGNESIUM SULF RIDER 2 GM/50 ML PREMIX IV PRN (01:11)
[2021-02-06] MEDS ORDERED: CALCIUM GLUCONATE 2,000 MG in SODIUM CHLORIDE 0.9% 100 ML IV ONE (02:00)
[2021-02-06] MEDS: NOREPINEPHRINE 8 MG in SODIUM CHLORIDE 0.9% 242 ML IV PRN ×2 (02:04→08:45)
[2021-02-06] MEDS: metroNIDAZOLE INJ 500 MG/100 ML PREMIX IV SCH (02:13)
[2021-02-06] MEDS: SODIUM BICARB INJ 100 MEQ in SODIUM CHLORIDE 0.45% 1,000 ML IV SCH (04:45)
[2021-02-06] MEDS: HEPARIN 5,000 UNIT/1 ML VIAL SUBCUT SCH (05:19)
[2021-02-06 05:40] LABS: Basophils % 1.1 % (0.0-0.8); Hematocrit 28.1 VOL% (35.7-47.0); Immature Granulocytes Absolute 0.18 #; Lymphocytes # 0.4 10*3/uL (1.4-4.0); Lymphocytes % 11.3 % (21.3-54.2); Mean Corpuscular HGB Conc 33.5 GM/DL (32-36); Mean Corpuscular Volume 92.4 FL (87-102); Monocytes % 7.5 % (1.7-12.7); NRBC # 0.05 10*3/uL; Neutrophils % 75.1 % (38.7-73.9); Red Cell Distribution Width 12.7 % (9.3-17.3)
[2021-02-06 05:43] LABS: Red Blood Count 3.04 MC/CUMM (3.8-5.5); White Blood Count 3.6 T/CUMM (4-12)
[2021-02-06 05:44] LABS: Hemoglobin 9.4 GM/DL (12.0-16.0); Platelet Count 99 T/CUMM (130-400)
[2021-02-06 06:08] LABS: Band Neutrophils 4 % (0-10); Hypochromasia 1+; Lymphocytes 17 % (20-55); Microcytosis 1+; Nucleated Red Blood Cells 3 (0-5); Segmented Neutrophils 72 % (50-85); Total Cells Counted 100
[2021-02-06] MEDS ORDERED: LIDOCAINE 1%/EPI INJ 20 ML VIAL ONE (07:29)
[2021-02-06] MEDS ORDERED: BUPIVACAINE MPF 0.25% 30 ML VIAL ONE (07:29)
[2021-02-06] MEDS ORDERED: MIDAZOLAM 2 MG/2 ML VIAL ONE ×4 (07:42→10:27)
[2021-02-06] MEDS ORDERED: fentaNYL 100 MCG/2 ML VIAL ONE ×2 (07:44→10:27)
[2021-02-06] MEDS ORDERED: ALBUMIN 5% 12.5 GM/250 ML VIAL IV ONE (07:53)
[2021-02-06] MEDS ORDERED: HEPARIN/NACL 0.9% 2 UNITS/ML 1,000 UNIT/500 ML BAG IV ONE ×2 (08:28→10:11)
[2021-02-06 08:41] LABS: Calcium 6.2 MG/DL (8.5-10.1); Osmolality,Calculated 310.2 MOS/KG (273-304); Potassium 4.1 MMOL/L (3.5-5.1)
[2021-02-06] MEDS ORDERED: VERAPAMIL 5 MG/2 ML VIAL ONE (08:41)
[2021-02-06] MEDS ORDERED: LIDOCAINE 1% 20 ML VIAL ONE (08:41)
[2021-02-06] MEDS ORDERED: NITROGLYCERIN DRIP 50 MG/250 ML BOTTLE IV ONE (08:41)
[2021-02-06] MEDS ORDERED: NOREPINEPHRINE 4 MG/4 ML VIAL IV ONE (08:45)
[2021-02-06] MEDS ORDERED: HYDROmorphone 2 MG/1 ML VIAL ONE (08:47)
[2021-02-06] MEDS ORDERED: ASPIRIN 325 MG TABLET PO ONE (09:00)
[2021-02-06] MEDS ORDERED: ENOXAPARIN 80 MG/0.8 ML SYRINGE SUBCUT SCH (09:00)
[2021-02-06] MEDS ORDERED: INFLUENZA VIRUS VACCINE 0.5 ML SYRINGE IM ONE (09:00)
[2021-02-06] MEDS ORDERED: PARoxetine 20 MG TABLET PO SCH (09:00)
[2021-02-06] MEDS ORDERED: ETOMIDATE 20 MG/10 ML VIAL IV ONE ×2 (09:00→09:30)
[2021-02-06] MEDS ORDERED: SUCCINYLCHOLINE 200 MG/10 ML VIAL ONE ×2 (09:01→10:48)
[2021-02-06 09:07] LABS: CKMB % 2.5 %
[2021-02-06 09:11] LABS: High Sensitive Troponin I* 24440.4 ng/L (0-54)
[2021-02-06 09:18] LABS: Albumin 2.3 G/DL (3.4-5.0); Bilirubin,Total 0.9 MG/DL (0.20-1.00); Calcium 6.2 MG/DL (8.5-10.1); Osmolality,Calculated 301.8 MOS/KG (273-304); Total Protein 5.9 G/DL (6.4-8.2)
[2021-02-06] MEDS ORDERED: SUCCINYLCHOLINE 200 MG/10 ML VIAL IV ONE (09:30)
[2021-02-06 09:39] LABS: Hepatitis B Core IgM Quant 0.06 Index; Hepatitis B Surface Ag Quant < 0.10 Index; Hepatitis B Surface Ag Result Non-Reactive (NonReactive); Hepatitis C Virus Ab Quant 0.03 Index; Hepatitis C Virus Ab Result Non-Reactive (NonReactive)
[2021-02-06] MEDS ORDERED: MIDAZOLAM 2 MG/2 ML VIAL IV ONE (10:25)
[2021-02-06] MEDS ORDERED: ROCURONIUM 50 MG/5 ML VIAL IV ONE (10:28)
[2021-02-06 10:42] LABS: ABG Base Excess 3.4 MMOL/L (-2.5-2.5); ABG HCO3 27.5 MMOL/L (20-26); ABG Oxygen Saturation 97.8 % (95-100); ABG PCO2 41.9 MM HG (35-48); ABG PH 7.432 (7.35-7.45); ABG PO2 90.4 MM HG (80-95); ABG TCO2 26.4 MMOL/L (23-27)
[2021-02-06] MEDS ORDERED: ETOMIDATE 40 MG/20 ML VIAL IV ONE (10:48)
[2021-02-06] MEDS ORDERED: HEPARIN 10,000 UNIT/10 ML VIAL ONE (10:48)
[2021-02-06] MEDS ORDERED: SEVOFLURANE 1 UNIT/15 MINUTE INH ONE (10:48)
[2021-02-06 11:00] LABS: ABG HCO3 10.8 MMOL/L (20-26); ABG Oxygen Saturation 98.8 % (95-100); ABG PCO2 25.3 MM HG (35-48); ABG PH 7.247 (7.35-7.45); ABG TCO2 11.5 MMOL/L (23-27); Glucose Heart Surgery 73 MG/DL (74-106); Hemoglobin Heart Surgery 9.3 G/DL (12.0-16.0)
[2021-02-06 11:02] LABS: Potassium Heart/CVR 6.2 MMOL/L (3.5-5.1)
[2021-02-06] MEDS ORDERED: CIPROFLOXACIN INJ 400 MG/200 ML PREMIX IV SCH (17:00)
== END 2021-02-06 11:51 | disposition expired | DRG 247 ==
LOC: EDUNIT# → EDBD → N.ED 12:53 → N.EDINP 18:10 → N.ICU 20:58
PROVIDERS: ADMIT Family Medicine; ATTEND Family Medicine
PROC: CLCCHCL (ICD-10-PCS; 2021-02-06 09:45)